=== PATIENT | male | born 1965 | race African-American/Black ===

== ENCOUNTER 2017-04-17 14:38 | Emergency (ER) | payer MEDICAID, OTHER ==
[~2017-04-17] VITALS: Ht 193 cm; Wt 89.8 kg
[2017-04-17 15:29] VITALS: BP 111/81
[2017-04-17] MEDS ORDERED: HYDROmorphone HCL 2 MG/ML VL IM ONE (16:00)
[2017-04-17] MEDS ORDERED: METHOCARBAMOL 500 MG TAB PO ONE (16:00)
[2017-04-17] MEDS ORDERED: ONDANSETRON HCL 4 MG/2 ML VIAL IM ONE (16:00)
== END 2017-04-17 17:30 | disposition home or self-care (01) ==
LOC: ER 14:38
DX: S39.012A Strain of muscle, fascia and tendon of lower back, initial encounter (principal); X50.9XXA Other and unspecified overexertion or strenuous movements or postures, initial encounter; Y93.89 Activity, other specified; Y92.89 Other specified places as the place of occurrence of the external cause; Y99.8 Other external cause status
CPT/HCPCS: 72100; 96372; 99284; J1170; J2405

== ENCOUNTER 2017-04-22 07:58 | Emergency (ER) | payer OTHER ==
[~2017-04-22] VITALS: Ht 193 cm; Wt 88.5 kg
[2017-04-22 08:39] VITALS: BP 122/87
[2017-04-22] MEDS ORDERED: PROMETHAZINE HCL 25 MG/ML 1ML IM ONE (10:30)
[2017-04-22] MEDS ORDERED: MORPHINE SULFATE 10 MG/ML INJ 1ML SDV IM ONE (10:30)
== END 2017-04-22 11:15 | disposition home or self-care (01) ==
LOC: ER 07:58
DX: M48.061 Spinal stenosis, lumbar region without neurogenic claudication (principal); M51.16 Intervertebral disc disorders with radiculopathy, lumbar region
CPT/HCPCS: 72131; 96372; 99284; J2270; J2550